=== PATIENT | female | born 1985 | race Caucasian/White ===

== ENCOUNTER 2021-12-20 19:48 | Emergency (ER) | payer SELFPAY ==
[~2021-12-20] VITALS: Ht 175.3 cm; Wt 91.5 kg
[2021-12-20 19:49] VITALS: BP 120/73
[2021-12-20] MEDS ORDERED: ALBU8.5H INH (19:57)
[2021-12-20] MEDS ORDERED: ACETAMINOPHEN TAB 650MG DOSE (2X325MG) PO ONE (21:30)
== END 2021-12-20 21:48 | disposition left against medical advice (07) ==
LOC: M ED 19:48
DX: Z53.21 Procedure and treatment not carried out due to patient leaving prior to being seen by health care provider (principal)